=== PATIENT | female | born 1955 | race Caucasian/White ===

== ENCOUNTER → 2021-03-04 13:31 | Outpatient (BNVA) | payer MEDICARE, MEDICAID, SELFPAY | PROVIDERS: Visit Provider Internal Medicine | DX: R79.89 Other specified abnormal findings of blood chemistry (principal); D35.00 Benign neoplasm of unspecified adrenal gland; E23.7 Disorder of pituitary gland, unspecified; F17.200 Nicotine dependence, unspecified, uncomplicated | CPT/HCPCS: 99214 ==

== ENCOUNTER → 2021-06-29 14:42 | Outpatient (BNVA) | payer MEDICARE, MEDICAID, SELFPAY | PROVIDERS: Visit Provider Internal Medicine | DX: E05.00 Thyrotoxicosis with diffuse goiter without thyrotoxic crisis or storm (principal); D35.00 Benign neoplasm of unspecified adrenal gland; L27.0 Generalized skin eruption due to drugs and medicaments taken internally; F17.210 Nicotine dependence, cigarettes, uncomplicated | CPT/HCPCS: 99214 ==

== ENCOUNTER 2021-08-07 10:58 | Outpatient (CLI) | payer MEDICARE, MEDICAID, SELFPAY ==
--- NOTE | 2021-08-06 10:57 | NM_ITS ---
WS: [id number] NUCLEAR MEDICINE 24 HOUR I-123 THYROID UPTAKE INDICATION: Hyperthyroidism TECHNIQUE: I-123 24 HOUR THYROID UPTAKE WITH PLANAR IMAGING. 122 UCI ESTRADA 123 FINDINGS: Homogeneous symmetric uptake in the RIGHT and LEFT thyroid lobes. No conspicuous hot or col d defects. 24 hour thyroid uptake 38.69% at the lower end of the range NORMAL 24H THRYOID UPTAKE 8-35% NM/NM thyroid uptake multi [id number] IMPRESSION: 24 hour thyroid uptake 38.69% at the lower end of the normal range.
== END 2021-08-07 10:59 | disposition home or self-care (01) ==
LOC: RAD 10:58
PROVIDERS: Visit Provider Internal Medicine
DX: E05.90 Thyrotoxicosis, unspecified without thyrotoxic crisis or storm (principal)
CPT/HCPCS: 78014; A9516

== ENCOUNTER → 2021-09-02 13:17 | Outpatient (BNVA) | payer MEDICARE, MEDICAID, SELFPAY | PROVIDERS: Visit Provider Internal Medicine | DX: E05.00 Thyrotoxicosis with diffuse goiter without thyrotoxic crisis or storm (principal); E05.90 Thyrotoxicosis, unspecified without thyrotoxic crisis or storm; D35.00 Benign neoplasm of unspecified adrenal gland; L27.0 Generalized skin eruption due to drugs and medicaments taken internally; F17.200 Nicotine dependence, unspecified, uncomplicated | CPT/HCPCS: 99214 ==

== ENCOUNTER → 2021-10-19 13:35 | Outpatient (BNVA) | payer MEDICARE, MEDICAID, SELFPAY | PROVIDERS: Visit Provider Internal Medicine | DX: E05.90 Thyrotoxicosis, unspecified without thyrotoxic crisis or storm (principal); E05.00 Thyrotoxicosis with diffuse goiter without thyrotoxic crisis or storm; D35.00 Benign neoplasm of unspecified adrenal gland; L27.0 Generalized skin eruption due to drugs and medicaments taken internally; F17.200 Nicotine dependence, unspecified, uncomplicated | CPT/HCPCS: 99214 ==

== ENCOUNTER → 2022-01-27 15:01 | Outpatient (BNVA) | payer MEDICARE, MEDICAID, SELFPAY | PROVIDERS: Visit Provider Internal Medicine | DX: E05.90 Thyrotoxicosis, unspecified without thyrotoxic crisis or storm (principal); E03.9 Hypothyroidism, unspecified; D35.00 Benign neoplasm of unspecified adrenal gland | CPT/HCPCS: 99215 ==

== ENCOUNTER → 2022-04-01 13:31 | Outpatient (BNVA) | payer MEDICARE, MEDICAID, SELFPAY | PROVIDERS: Visit Provider Internal Medicine | DX: E05.90 Thyrotoxicosis, unspecified without thyrotoxic crisis or storm (principal); E03.9 Hypothyroidism, unspecified; D35.00 Benign neoplasm of unspecified adrenal gland; R53.83 Other fatigue; Z79.890 Hormone replacement therapy | CPT/HCPCS: 99214 ==

== ENCOUNTER → 2022-07-20 12:59 | Outpatient (BNVA) | payer MEDICARE, MEDICAID, SELFPAY | PROVIDERS: PCP Pediatrics; Visit Provider Internal Medicine | DX: E05.90 Thyrotoxicosis, unspecified without thyrotoxic crisis or storm (principal); E03.9 Hypothyroidism, unspecified; D35.00 Benign neoplasm of unspecified adrenal gland; R53.83 Other fatigue; Z79.890 Hormone replacement therapy | CPT/HCPCS: 99214 ==

== ENCOUNTER → 2022-09-01 14:02 | Outpatient (BNVA) | payer MEDICARE, MEDICAID, SELFPAY | PROVIDERS: PCP Pediatrics; Visit Provider Internal Medicine | DX: E05.90 Thyrotoxicosis, unspecified without thyrotoxic crisis or storm (principal); E03.9 Hypothyroidism, unspecified; D35.00 Benign neoplasm of unspecified adrenal gland; R53.83 Other fatigue; Z79.890 Hormone replacement therapy | CPT/HCPCS: 99214 ==